=== PATIENT | male | born 1970 | race Caucasian/White ===

== ENCOUNTER 2022-09-21 08:34 | Day surgery (SDC) | payer BC ==
[~2022-09-21] VITALS: Ht 175.3 cm; Wt 120.0 kg
[~2022-09-21 08:34] MED LIST: AMOCLA875 PO; ASPI81CH PO; HYDACE5 PO; ROSU10TA PO
--- NOTE | 2022-09-21 10:00 | NUR ---
09/21/22 Lamont Nathan Carballo HISTORY, CHART, MEDICATIONS AND ALLERGIES REVIEWED BEFORE START OF PROCEDURE. PATIENT CONFIRMS NPO STATUS AND AGREES WITH SCHEDULED PROCEDURE. 3-LEAD EKG REVIEWED WITH PHYSICIAN PRIOR TO START OF PROCEDURE. MONITOR INTACT WITH CONTINUOUS PULSE OXIMETRY,CAPNOGRAPHY, 3-LEAD EKG, INTERMITTENT BP. SUPPLEMENTAL O2 TO BE TITRATED THROUGHOUT PROCEDURE TO MAINTAIN O2 SATURATION ABOVE 90%. PATIENT DETERMINED TO BE ASA APPROPRIATE FOR PROPOFOL SEDATION PRIOR TO START OF PROCEDURE BY
--- NOTE | 2022-09-21 10:11 | NUR ---
PT AWAKE AND TALKING. PT DENIES ANY NAUSEA OR PAIN. PT TOLERATING PO FLUIDS. PT ON RM AIR.
--- NOTE | 2022-09-21 10:28 | NUR ---
PT TOLERATING PO FLUIDS. PT UP AT SIDE OF BED WN STRONG STEADY GAIT. PT DENYING ANY NAUSEA OR PAIN. PT DRESSED AWAITING RIDE.
--- NOTE | 2022-09-21 10:59 | NUR ---
DISCHARGED WITH ALL BELONGINGS
== END 2022-09-21 22:41 | disposition home or self-care (01) ==
LOC: ORSCMMR 08:34
PROVIDERS: Internal Medicine Gastroenterology
PROC: 0DBM8ZX Excision of Descending Colon, Via Natural or Artificial Opening Endoscopic, Diagnostic (ICD-10-PCS; principal; 2022-09-21 09:30)
PROC: 0DBN8ZX Excision of Sigmoid Colon, Via Natural or Artificial Opening Endoscopic, Diagnostic (ICD-10-PCS; principal; 2022-09-21 09:30)
DX: Z12.11 Encounter for screening for malignant neoplasm of colon (principal); D12.2 Benign neoplasm of ascending colon; K63.5 Polyp of colon; I48.0 Paroxysmal atrial fibrillation; E78.00 Pure hypercholesterolemia, unspecified; Z79.899 Other long term (current) drug therapy; Z79.82 Long term (current) use of aspirin; E66.01 Morbid (severe) obesity due to excess calories; Z68.39 Body mass index [BMI] 39.0-39.9, adult
CPT/HCPCS: 88305; J2704; J7120

== ENCOUNTER → 2023-05-02 | Outpatient (CLI) | payer OTHER ==
[2023-05-02 18:35] LABS: Alanine Aminotransfer (ALT/SGP 43 U/L (12-78); Albumin/Globulin Ratio 1.4 (0.8-1.8); Alk Phos 63 U/L (50-136); Anion Gap 3 mmol/L (6-16); Aspartate Aminotrans (AST/SGOT 25 U/L (12-37); Bilirubin, Total 0.5 mg/dL (0.1-1.0); Blood Urea Nitrogen 8 mg/dL (8-24); Bun/Creatinine Ratio 8.5 (12.0-20.0); CHOL/HDL RATIO 2.8; CO2, Blood 27 mmol/L (21-32); Chloride, Blood 108 mmol/L (98-108); Cholesterol 159 mg/dL (50-200); Creatinine, Blood 0.94 mg/dL (0.60-1.20); Globulin, Blood 2.9 g/dL (2.2-4.0); Glomerular Filtration Rate 98 (60-); Glucose, Blood 100 mg/dL (70-99); HDL Cholesterol 56 mg/dL (>39); LDL/HDL RATIO 1.5; Low Density Lipoprotein Chol 85 mg/dL (0-110); Potassium, Blood 4.8 mmol/L (3.5-5.5); Sodium, Blood 138 mmol/L (136-145); Total Protein, Blood 6.9 g/dL (6.4-8.2); Triglycerides 88 mg/dL (30-160); Very Low Density Lipoprot Chol 17 mg/dL (6-32)
== END ==
LOC: LAB 09:08 → LAB SHORT 09:08
PROVIDERS: Physician Assistant
DX: Z00.00 Encounter for general adult medical examination without abnormal findings (principal); E78.2 Mixed hyperlipidemia
CPT/HCPCS: 80053; 80061

== ENCOUNTER 2023-09-29 09:55 | Emergency (ER) | payer OTHER ==
[~2023-09-29] VITALS: Ht 175.3 cm; Wt 117.9 kg
[2023-09-29 10:42] LABS: BASOPHILS ABSOLUTE AUTO 0.11 K/mm3 (0.00-0.23); BASOPHILS PERCENT AUTO 2 % (0-2); EOSINOPHILS ABSOLUTE AUTO 0.07 K/mm3 (0.00-0.68); EOSINOPHILS PERCENT AUTO 1 % (0-6); Hematocrit 44.7 % (37.0-53.0); Hemoglobin 15.8 g/dL (13.5-17.5); IMMATURE GRAN ABSOLUTE AUTO 0.01 K/mm3 (0.00-0.10); IMMATURE GRAN PERCENT AUTO 0 % (0-1); LYMPHOCYTES ABSOLUTE AUTO 1.67 K/mm3 (0.84-5.20); LYMPHOCYTES PERCENT AUTO 33 % (21-46); MONOCYTES ABSOLUTE AUTO 0.34 K/mm3 (0.16-1.47); MONOCYTES PERCENT AUTO 7 % (4-13); Mean Corpuscular HGB 28.6 pg (26.0-34.0); Mean Corpuscular HGB Conc 35.3 g/dL (31.5-36.5); Mean Corpuscular Volume 81 fL (80-100); Mean Platelet Volume 9.8 fL (9.1-12.4); NEUTROPHILS ABSOLUTE AUTO 2.94 K/mm3 (1.96-9.15); NEUTROPHILS PERCENT AUTO 57 % (41-73); Platelet Count 276 K/mm3 (150-400); RDW Standard Deviation 37.7 fL (35.1-46.3); Red Blood Cell Count 5.52 M/mm3 (4.30-5.90); White Blood Cell Count 5.14 K/mm3 (4.00-11.30)
[2023-09-29 11:09] LABS: Albumin, Blood 3.4 g/dL (3.4-5.0); Bilirubin, Total 0.4 mg/dL (0.1-1.0); Bun/Creatinine Ratio 14.3 (12.0-20.0); Calcium, Blood 8.9 mg/dL (8.5-10.1); Creatinine, Blood 0.91 mg/dL (0.60-1.20); Globulin, Blood 3.4 g/dL (2.2-4.0); Potassium, Blood 5.3 mmol/L (3.5-5.5); Total Protein, Blood 6.8 g/dL (6.4-8.2)
[2023-09-29] MEDS ORDERED: Tambocor100 MG PO (14:16)
[2023-09-29] MEDS ORDERED: PREGABALIN50 MG PO (14:18)
[2023-09-29] MEDS ORDERED: METOPROLOL SUCC25 MG PO (14:18)
[2023-09-29] MEDS ORDERED: XARELTO20 M1 PO (14:18)
[2023-09-29 14:23] VITALS: BP 122/92
== END 2023-09-29 14:31 | disposition home or self-care (01) ==
LOC: ER 09:55
PROVIDERS: Physician Assistant
DX: I48.0 Paroxysmal atrial fibrillation (principal); Z79.899 Other long term (current) drug therapy
CPT/HCPCS: 80053; 84484; 85025; 92960; 93005; 93010; 99285-25; J2704; J7030

== ENCOUNTER 2025-01-12 07:32 | Day surgery (SDC) | payer BC ==
[~2025-01-12 07:32] MED LIST changes: +METOPROLOL SUCC25 MG PO; +PREGABALIN50 MG PO; +Tambocor100 MG PO; +XARELTO20 M1 PO
== END 2025-01-12 23:00 | disposition home or self-care (01) ==
LOC: CT 07:32
DX: I48.91 Unspecified atrial fibrillation (principal); I25.10 Atherosclerotic heart disease of native coronary artery without angina pectoris; R06.02 Shortness of breath; R07.9 Chest pain, unspecified
CPT/HCPCS: 75574; Q9967

== ENCOUNTER → 2025-07-13 | Outpatient (CLI) | payer BC | LOC: LAB 13:00 → LAB SHORT 13:00 | DX: N39.0 Urinary tract infection, site not specified (principal) | CPT/HCPCS: 87077; 87086; 87186 ==